=== PATIENT | female | born 1995 | race Caucasian/White ===

== ENCOUNTER → 2016-12-22 | Outpatient (CLI) | payer MEDICAID, OTHER | LOC: MW.CHOBGYN 10:47 | PROVIDERS: ATTEND Advanced Practice Midwife | DX: Z34.90 Encounter for supervision of normal pregnancy, unspecified, unspecified trimester (principal) | CPT/HCPCS: 36415; 80305; 81003; 85025; 86592; 86762; 86803; 86850; 86900; 86901; 87086; 87340; 87389; 87491; 87591 ==

== ENCOUNTER 2017-03-12 15:36 | Emergency (ER) | payer SELFPAY ==
[2017-03-12] MEDS ORDERED: Sodium Chloride 0.9% 1,000 ML IV ONE (15:39)
[2017-03-12 16:29] LABS: CHLORIDE,CL 105 mmol/L (98-110); SODIUM,NA 136 mmol/L (136-146)
--- NOTE | 2017-03-12 16:53 | EDM.PDOC ---
ED HPI GENERAL MEDICAL PROBLEM - General Chief Complaint: Gastrointestinal Problem Stated Complaint: VOMITTING BLOOD(34WKS ) Time Seen by Provider: 03/12/17 15:40 Source of Information: Reports: Patient History Limitations: Reports: No Limitations - History of Present Illness INITIAL COMMENTS - FREE TEXT/NARRATIVE: History of present illness: [21-year-old female comes in with complaints of bloody emesis 1 this morning upon waking. Patient indicates she has some pinching and cramping in her abdomen as well and is at 34 weeks of gestation.] Review of systems: As per history of present illness and below otherwise all systems reviewed and negative. Past medical history: As per history of present illness and as reviewed below otherwise noncontributory. Surgical history: As per history of present illness and as reviewed below otherwise noncontributory. Social history: No reported history of drug or alcohol abuse. Family history: As per history of present illness and as reviewed below otherwise noncontributory. Physical exam: HEENT: Atraumatic, normocephalic, pupils reactive, negative for conjunctival pallor or scleral icterus, mucous membranes moist, throat clear, neck supple, nontender, trachea midline. Lungs: Clear to auscultation, breath sounds equal bilaterally, chest nontender. Heart: S1S2, regular, negative for clicks, rubs, or JVD. Abdomen: Soft, nondistended, nontender. Negative for masses or hepatosplenomegaly. Negative for costovertebral tenderness. Pelvis: Stable nontender. Genitourinary: Deferred. Rectal: Deferred. Extremities: Atraumatic, negative for cords or calf pain. Neurovascular unremarkable. Neuro: Awake, alert, oriented. Cranial nerves II through XII unremarkable. Cerebellum unremarkable. Motor and sensory unremarkable throughout. Exam nonfocal. OB nurse was here and did a nonstress test and monitored mom and baby with full clearance given. No nausea vomiting and/or amount of emesis while present in the ED Labs are completely stable without concern at this point Sushila Johnson CNM notified of patient's status and indicated a PPI and follow -up in office would be acceptable. Diagnostics: [CBC, CMP] Therapeutics: [IV fluid] Impression: [Vomiting, third trimester stable] Plan: [PPI, follow-up with OB] Definitive disposition and diagnosis as appropriate pending reevaluation and review of above. Lower Abdominal Pain Score (Numeric/FACES): 7 - Related Data Allergies Allergy/AdvReac Type Severity Reaction Status Date / Time Penicillins Allergy Hives Verified 03/12/17 15:49 Home Meds: Home Meds Lansoprazole [Prevacid] 30 mg PO DAILY #30 capsule. 03/12/17 [Rx] Past Medical History - Past Health History Medical/Surgical History: Denies Medical/Surgical History PRACTICE PROFESSIONAL History: Reports: - Infectious Disease History Infectious Disease History: Reports: Chicken Pox Social & Family History - Family History Family Medical History: Noncontributory - Tobacco Use Smoking Status *Q: Never Smoker - Caffeine Use Caffeine Use: Reports: None - Recreational Drug Use Recreational Drug Use: No ED ROS GENERAL - Review of Systems Review Of Systems: See Below (See history of present illness) ED EXAM, GENERAL - Physical Exam Exam: See Below (See history of present illness) Course - Vital Signs Last Recorded V/S: Last Vital Signs Temp 36.4 C 03/12/17 15:43 Pulse 89 03/12/17 15:43 Resp 16 03/12/17 15:43 BP 132/75 03/12/17 15:43 Pulse Ox 99 03/12/17 15:43 - Orders/Labs/Meds Labs: Laboratory Tests 03/12/17 03/12/17 Range/Units 15:49 15:49 WBC 14.23 H (4.0-11.0) K/uL RBC 4.30 (4.30-5.90) M/uL Hgb 11.8 L (12.0-16.0) g/dL Hct 36.9 (36.0-46.0) % MCV 85.8 (80.0-98.0) fL MCH 27.4 (27.0-32.0) pg MCHC 32.0 (31.0-37.0) g/dL RDW Std Deviation 41.2 (28.0-62.0) fl RDW Coeff of Nieves 13 (11.0-15.0) % Plt Count 188 (150-400) K/uL MPV 11.00 (7.40-12.00) fL Neut % (Auto) 79.5 (48.0-80.0) % Lymph % (Auto) 14.9 L (16.0-40.0) % Dawes % (Auto) 5.1 (0.0-15.0) % Eos % (Auto) 0.4 (0.0-7.0) % Baso % (Auto) 0.1 (0.0-1.5) % Neut # (Auto) 11.3 H (1.4-5.7) K/uL Lymph # (Auto) 2.1 (0.6-2.4) K/uL Dawes # (Auto) 0.7 (0.0-0.8) K/uL Eos # (Auto) 0.1 (0.0-0.7) K/uL Baso # (Auto) 0.0 (0.0-0.1) K/uL Nucleated RBC % 0.0 /100WBC Nucleated RBCs # 0 K/uL Sodium 136 (136-146) mmol/L Potassium 3.8 (3.5-5.1) mmol/L Chloride 105 (98-110) mmol/L Carbon Dioxide 21 (21-31) mmol/L BUN 10 (6.0-23.0) mg/dL Creatinine 0.7 (0.6-1.5) mg/dL Est Cr Clr Drug Dosing 100.55 mL/min Estimated GFR (MDRD) > 60.0 ml/min Glucose 74 (60-110) mg/dL Calcium 9.0 (8.8-10.8) mg/dL Total Bilirubin 0.5 (0.1-1.5) mg/dL AST 21 (5-40) IU/L ALT 15 (8-54) IU/L Alkaline Phosphatase 135 (40-150) Total Protein 7.6 (6.0-8.0) g/dL Albumin 3.5 (3.5-5.0) g/dL Globulin 4.1 H (2.0-3.5) g/dL Albumin/Globulin Ratio 0.9 L (1.3-2.8) Meds: Medications Discontinued Medications Generic Name Dose Route Start Last Admin Trade Name Freq PRN Reason Stop Dose Admin Sodium Chloride 1,000 mls @ 999 mls/hr 03/12/17 15:39 03/12/17 15:53 Normal Saline IV 03/12/17 16:39 999 mls/hr STAT ONE Administration Departure - Departure Time of Disposition: 16:53 Disposition: Home, Self-Care 01 Condition: Good Clinical Impression: Vomiting, 34 weeks gestation of - Discharge Information Prescriptions: Lansoprazole [Prevacid] 30 mg PO DAILY #30 capsule.dr Forms: ED Department Discharge Additional Instructions: The following information is given to patients seen in the emergency department who are being discharged to home. This information is to outline your options for follow-up care. We provide all patients seen in our emergency department with a follow-up referral. The need for follow-up, as well as the timing and circumstances, are variable depending upon the specifics of your emergency department visit. If you don't have a primary care physician on staff, we will provide you with a referral. We always advise you to contact your personal physician following an emergency department visit to inform them of the circumstance of the visit and for follow-up with them and/or the need for any referrals to a consulting specialist. The emergency department will also refer you to a specialist when appropriate. This referral assures that you have the opportunity for follow-up care with a specialist. All of these measure are taken in an effort to provide you with optimal care, which includes your follow-up. Under all circumstances we always encourage you to contact your private physician who remains a resource for coordinating your care. When calling for follow-up care, please make the office aware that this follow-up is from your recent emergency room visit. If for any reason you are refused follow-up, please contact the [facility] Emergency Department at and asked to speak to the emergency department charge nurse. Take medication as directed Follow-up with PCP 1-2 days Return to ED as needed as discussed
[2017-03-12 17:09] VITALS: BP 101/58
== END 2017-03-12 17:05 | disposition home or self-care (01) ==
LOC: MW.ED 15:36
DX: O21.9 Vomiting of pregnancy, unspecified (principal); Z3A.34 34 weeks gestation of pregnancy; Z88.0 Allergy status to penicillin; Z79.899 Other long term (current) drug therapy
CPT/HCPCS: 36415; 80053; 85025; 96360; 99284; J7040; 99283

== ENCOUNTER 2017-04-18 00:06 | Inpatient (IN) | payer SELFPAY ==
[2017-04-18] MEDS ORDERED: Sodium Chloride 0.9% 10 ML Syringe FLUSH PRN (03:01)
[2017-04-18] MEDS ORDERED: Carboprost Tromethamine 250 MCG/1 ML Amp IM PRN (03:01)
[2017-04-18] MEDS ORDERED: Nalbuphine 10 MG/1 ML Vial IVPUSH PRN (03:01)
[2017-04-18] MEDS ORDERED: Misoprostol 200 MCG Tab PO PRN (03:01)
[2017-04-18] MEDS ORDERED: Butorphanol 1 MG/ML SDV IVPUSH PRN (03:01)
[2017-04-18] MEDS ORDERED: Lidocaine 1% 50 ML MDV INJECT PRN (03:01)
[2017-04-18] MEDS ORDERED: Sodium Chloride 0.9% 2.5 ML Syringe FLUSH PRN (03:01)
[2017-04-18] MEDS ORDERED: Methylergonovine 0.2 MG/1 ML Amp IM PRN ×2 (03:01→12:18)
[2017-04-18] MEDS ORDERED: Water For Irrigation,Sterile 1,000 ML Container IRR PRN (03:01)
[2017-04-18] MEDS ORDERED: cefTRIAXone 1 GM in Premix Bag 1 BAG IV ONE (03:40)
[2017-04-18] MEDS: Lactated Ringers 1,000 ML IV SCH ×2 (03:45→07:28)
[2017-04-18] MEDS ORDERED: Oxytocin/Lactated Ringers 30 UNIT/500 ML BAG IV ONE (05:00)
[2017-04-18] MEDS ORDERED: Oxytocin/Lactated Ringers 30 UNIT/500 ML BAG ONE (11:22)
[2017-04-18] MEDS ORDERED: fentaNYL 100 MCG/2 ML SDV ONE (11:30)
[2017-04-18] MEDS ORDERED: Lanolin 100% Cream 7 GM Tube TOP PRN (12:18)
[2017-04-18] MEDS ORDERED: Benzocaine/Menthol 20%-0.5% Spray 78 GM Cannister TOP PRN (12:18)
[2017-04-18] MEDS ORDERED: Docusate Sodium 100 MG Cap PO PRN (12:18)
[2017-04-18] MEDS ORDERED: Acetaminophen 500 MG Tab PO PRN (12:18)
[2017-04-18] MEDS ORDERED: Bisacodyl 10 MG Supp RECTAL PRN (12:18)
[2017-04-18] MEDS ORDERED: Witch Hazel Medicated Pads 40/Jar TOP PRN (12:18)
[2017-04-18] MEDS ORDERED: oxyCODONE 5 MG Tab PO PRN (12:18)
[2017-04-18] MEDS: Ibuprofen 800 MG Tab PO PRN ×2 (14:03→20:02)
--- NOTE | 2017-04-18 14:47 | OR ---
SURGEON: Dixie Alexandre M.D. DATE OF PROCEDURE: 04/18/2017 PREOPERATIVE DIAGNOSIS: A 40-week intrauterine , active spontaneous labor. POSTOPERATIVE DIAGNOSIS: A 40-week intrauterine , active spontaneous labor. PROCEDURES: 1. Term spontaneous vaginal delivery. 2. Repair of first-degree perineal laceration. ANESTHESIA: Local. ESTIMATED BLOOD LOSS: Less than 300 mL. FINDINGS: Live born male, score 8 and 10 weighing 3260 g. Placenta spontaneous, Webber intact with 3 vessels. First degree perineal laceration repair. COMPLICATIONS: None known. DISPOSITION: Mother and baby are in LDRP in good condition. BRIEF HISTORY: This is a 21-year-old female, G2, P 1-0-0-1. She presents at 40 weeks gestation in active spontaneous labor. She was admitted to Labor and Delivery. She was known to be group B strep positive with a penicillin allergy. Sensitivities showed the bacteria to be sensitive to Rocephin which she received without any complications. After 5 hours of Rocephin, she was still 5-6 cm dilated, therefore artificial rupture of membranes was performed. Clear fluid was noted. She continued to have category 1 heart tones. She progressed to 8-9 cm. At this time she decided that she may want epidural analgesia, therefore anesthesia was notified. They came and attempted to do an intrathecal. However the head was at this time. DESCRIPTION OF PROCEDURE: With the patient in the dorsal lithotomy position, the patient pushed over 2 contractions to a 5+ station, at which time the head was delivered spontaneously and atraumatically over the perineum with support with subsequent delivery of the infant's shoulders and body without any difficulty. The infant was bulb suctioned by nose and mouth. The cord was clamped x2 and cut. The infant was handed to the mother in the presence of the nurse attending delivery. The was a liveborn male, score 8 and 10, weighing 3260 g. Cord blood was collected for cord ABGs as well as routine cord blood sampling. The placenta was delivered spontaneously, Webber intact with 3 vessels. Upon inspection of the pelvis and perineum, there were no periurethral, vaginal sidewall, cervical, or rectal lacerations. There was a first-degree perineal laceration that was repaired with a subcuticular suture of 3-0 Caprosyn. Final sponge, needle, and instrument count were correct. There were no known complications. Infant and mother remained in LDRP in good condition. GEORGES HINKLE /[id number]
--- NOTE | 2017-04-18 17:26 | PCM48HPAN ---
Post Anesthesia Note - EVALUATION WITHIN 48HRS OF ANESTHETIC Vital Signs in Normal Range: Yes Patient Participated in Evaluation: Yes Respiratory Function Stable: Yes Airway Patent: Yes Cardiovascular Function Stable: Yes Hydration Status Stable: Yes Pain Control Satisfactory: Yes Nausea and Vomiting Control Satisfactory: Yes Mental Status Recovered: Yes
[2017-04-19 08:25] VITALS: BP 130/77
--- NOTE | 2017-04-19 09:53 | PCM.PNPP ---
- General Info Date of Service: 04/19/17 Functional Status: Reports: Pain Controlled, Tolerating Diet, Ambulating, Urinating - Review of Systems General: Reports: No Symptoms HEENT: Reports: No Symptoms Pulmonary: Reports: No Symptoms Cardiovascular: Reports: No Symptoms Gastrointestinal: Reports: No Symptoms Genitourinary: Reports: No Symptoms Musculoskeletal: Reports: No Symptoms Skin: Reports: No Symptoms Neurological: Reports: No Symptoms Psychiatric: Reports: No Symptoms - Patient Data Vital Signs - Most Recent: Last Vital Signs Temp 37.0 C 04/19/17 08:24 Pulse 80 04/19/17 08:24 Resp 15 04/19/17 08:24 BP 130/77 04/19/17 08:24 Pulse Ox 100 04/19/17 08:24 Weight - Most Recent: 74.843 kg Lab Results - Last 24 Hours: Laboratory Results - last 24 hr 04/19/17 Range/Units 05:35 Hgb 7.4 L (12.0-16.0) g/dL Hct 23.5 L (36.0-46.0) % Med Orders - Current: Current Medications Acetaminophen (Tylenol Extra Strength) 1,000 mg PO Q4H PRN PRN Reason: Pain Benzocaine/Menthol (Dermoplast Pain Relief 20%-0.5% Gilbert) 78 gm TOP ASDIRECTED PRN PRN Reason: Perineal Comfort Measure Last Admin: 04/18/17 13:59 Dose: 1 canister Bisacodyl (Dulcolax) 10 mg RECTAL .ONCE PRN PRN Reason: Constipation Docusate Sodium (Colace) 100 mg PO BID PRN PRN Reason: Constipation Emollient Ointment (Lansinoh Hpa) 0 gm TOP ASDIRECTED PRN PRN Reason: Sore Nipples Ibuprofen (Motrin) 800 mg PO Q6H PRN PRN Reason: Pain Last Admin: 04/18/17 20:02 Dose: 800 mg Methylergonovine Maleate (Methergine) 0.2 mg IM .ONCE PRN PRN Reason: Excessive Vaginal Bleeding Oxycodone HCl (Oxycodone) 5 mg PO Q2H PRN PRN Reason: Pain Witch Mar (Tucks) 1 pad TOP ASDIRECTED PRN PRN Reason: comfort care Last Admin: 04/18/17 13:59 Dose: 1 tub Discontinued Medications Butorphanol Tartrate (Stadol) 1 mg IVPUSH Q1H PRN PRN Reason: Pain Carboprost Tromethamine (Hemabate Ds) 250 mcg IM ASDIRECTED PRN PRN Reason: Post Hemorrhage Fentanyl (Sublimaze) Confirm Administered Dose 100 mcg .ROUTE .Sentrinsic-Urtak ONE Stop: 04/18/17 11:31 Last Admin: 04/18/17 21:36 Dose: Not Given Lactated Ringer's (Ringers, Lactated) 1,000 mls @ 150 mls/hr IV ASDIRECTED SUSIE Last Admin: 04/18/17 07:28 Dose: 150 mls/hr Oxytocin/Lactated Ringer's (Pitocin In Lr 30 Units/500 Ml) 30 unit in 500 mls @ 500 mls/hr IV ONETIME ONE Stop: 04/18/17 05:59 Last Admin: 04/18/17 11:55 Dose: 500 mls/hr Ceftriaxone Sodium/Dextrose 1 (gm/ Premix) 50 mls @ 100 mls/hr IV ONETIME ONE Stop: 04/18/17 04:09 Last Admin: 04/18/17 04:05 Dose: 100 mls/hr Oxytocin/Lactated Ringer's (Pitocin In Lr 30 Units/500 Ml) Confirm Administered Dose 30 unit in 500 mls @ as directed .ROUTE .Sentrinsic-Urtak ONE Stop: 04/18/17 11:23 Last Admin: 04/18/17 21:36 Dose: Not Given Lidocaine HCl (Xylocaine 1%) 50 ml INJECT .ONCE PRN PRN Reason: Laceration repair Last Admin: 04/18/17 11:40 Dose: 50 ml Methylergonovine Maleate (Methergine) 0.2 mg IM ASDIRECTED PRN PRN Reason: Post Hemorrhage Misoprostol (Cytotec) 200 mcg PO .ONCE PRN PRN Reason: Post Hemorrhage Nalbuphine HCl (Nubain) 10 mg IVPUSH Q1H PRN PRN Reason: Pain (severe 7-10) Sodium Chloride (Saline Flush) 10 ml FLUSH ASDIRECTED PRN PRN Reason: Keep Vein Open Sodium Chloride (Saline Flush) 2.5 ml FLUSH ASDIRECTED PRN PRN Reason: Keep Vein Open Sterile Water (Sterile Water For Irrigation) 1,000 ml IRR ASDIRECTED PRN PRN Reason: delivery Last Admin: 04/18/17 11:33 Dose: 1,000 ml - Interaction Infant Disposition, : at Bedside Infant Interaction: Holding Infant Feeding: Breastfed Infant; Nursed Well Support Person: - Recovery Exam Fundal Tone: Firm Fundal Level: At Umbilicus Fundal Placement: Midline Lochia Amount: Scant Lochia Color: Rubra/Red Perineum Description: Intact, Minimal Bruising/Swelling Other Perinuem Description: 1st degree laceration Episiotomy/Laceration: Approximated Bladder Status: Nonpalpable, Voiding Urinary Elimination: Voided - Exam General: Alert, Oriented HEENT: Pupils Equal Neck: Supple Lungs: Normal Respiratory Effort GI/Abdominal Exam: Soft, Non-Tender, No Mass Extremities: Normal Inspection, Normal Range of Motion, Non-Tender, No Pedal Edema, Normal Capillary Refill Skin: Warm, Dry, Intact Neurological: No New Focal Deficit Psy/Mental Status: Alert, Normal Affect, Normal Mood - Problem List & Annotations (1) Vaginal delivery SNOMED Code(s): 987096243 Code(s): O80 - ENCOUNTER FOR FULL-TERM UNCOMPLICATED DELIVERY Status: Acute Current Visit: Yes - Problem List Review Problem List Initiated/Reviewed/Updated: Yes - My Orders Last 24 Hours: My Active Orders 04/18/17 12:18 Patient Status [ADT] Routine May Shower [RC] ASDIRECTED Up ad Sally [RC] ASDIRECTED Vital Signs [RC] PER UNIT ROUTINE Acetaminophen [Tylenol Extra Strength] 1,000 mg PO Q4H PRN Benzocaine/Menthol [Dermoplast Pain Relief 20%-0.5% Gilbert] 78 gm TOP ASDIRECTED PRN Bisacodyl [Dulcolax] 10 mg RECTAL .ONCE PRN Docusate Sodium [Colace] 100 mg PO BID PRN Ibuprofen [Motrin] 800 mg PO Q6H PRN Lanolin [Lansinoh HPA] See Dose Instructions TOP ASDIRECTED PRN Methylergonovine [Methergine] 0.2 mg IM .ONCE PRN Witch Mar [Tucks] 1 pad TOP ASDIRECTED PRN oxyCODONE 5 mg PO Q2H PRN Assess Lochia [WOMSER] Per Unit Routine Assess Uterine Involution [WOMSER] Per Unit Routine Peripheral IV Discontinue [OM.PC] Routine Resuscitation Status Routine 04/18/17 12:19 Perineal Care [OM.PC] Per Unit Routine 04/18/17 Lunch Regular Diet [DIET] - Assessment Assessment:: PPD#1 after , stable, minimal lochia, would like to go home after 24 hour . She is well, good support from FOB - Plan Plan:: Dismiss to home. Discharge precautions reviewed. Will use over the counter pain medication, continue vitamins while .
--- NOTE | 2017-04-19 09:56 | PCM.DCSUM1 ---
Discharge Summary - Hospital Course Free Text/Narrative:: 21 year old at 40 weeks gestation, GBS positive given Rocephin due to allergy/sensitivities, afebrile in labor had of liveborn male APG 8/10 weight 3260 grams, second degree laceration repaired. Uneventful course, bonding well, good support from SO, well. - Discharge Data Discharge Date: 04/19/17 Discharge Disposition: Home, Self-Care 01 Condition: Good - Discharge Diagnosis/Problem(s) (1) Vaginal delivery SNOMED Code(s): 530682484 ICD Code: O80 - ENCOUNTER FOR FULL-TERM UNCOMPLICATED DELIVERY Status: Acute Current Visit: Yes - Patient Summary/Data Operative Procedure(s) Performed: TSVD, repair of second degree laceration Complications: None Known. - Patient Instructions Diet: Usual Diet as Tolerated Activity: No Strenuous Activities Driving: May Drive Today Showering/Bathing: May Shower Notify Provider of: Fever, Increased Pain, Swelling and Redness, Nausea and/or Vomiting Other/Special Instructions: nothing per vagina for 6 weeks. Continue vitamins while . May use over the counter Ibuprofen or Tylenol for pain. - Discharge Plan Home Medications: Home Meds Lansoprazole [Prevacid] 30 mg PO DAILY #30 capsule. 03/12/17 [Rx] - Discharge Summary/Plan Comment DC Time >30 min.: No - Patient Data Vitals - Most Recent: Last Vital Signs Temp 37.0 C 04/19/17 08:24 Pulse 80 04/19/17 08:24 Resp 15 04/19/17 08:24 BP 130/77 04/19/17 08:24 Pulse Ox 100 04/19/17 08:24 Weight - Most Recent: 74.843 kg Lab Results - Last 24 hrs: Laboratory Results - last 24 hr 04/19/17 Range/Units 05:35 Hgb 7.4 L (12.0-16.0) g/dL Hct 23.5 L (36.0-46.0) % Med Orders - Current: Current Medications Acetaminophen (Tylenol Extra Strength) 1,000 mg PO Q4H PRN PRN Reason: Pain Benzocaine/Menthol (Dermoplast Pain Relief 20%-0.5% Ingraham) 78 gm TOP ASDIRECTED PRN PRN Reason: Perineal Comfort Measure Last Admin: 04/18/17 13:59 Dose: 1 canister Bisacodyl (Dulcolax) 10 mg RECTAL .ONCE PRN PRN Reason: Constipation Docusate Sodium (Colace) 100 mg PO BID PRN PRN Reason: Constipation Emollient Ointment (Lansinoh Hpa) 0 gm TOP ASDIRECTED PRN PRN Reason: Sore Nipples Ibuprofen (Motrin) 800 mg PO Q6H PRN PRN Reason: Pain Last Admin: 04/18/17 20:02 Dose: 800 mg Methylergonovine Maleate (Methergine) 0.2 mg IM .ONCE PRN PRN Reason: Excessive Vaginal Bleeding Oxycodone HCl (Oxycodone) 5 mg PO Q2H PRN PRN Reason: Pain Witch Mar (Tucks) 1 pad TOP ASDIRECTED PRN PRN Reason: comfort care Last Admin: 04/18/17 13:59 Dose: 1 tub Discontinued Medications Butorphanol Tartrate (Stadol) 1 mg IVPUSH Q1H PRN PRN Reason: Pain Carboprost Tromethamine (Hemabate Ds) 250 mcg IM ASDIRECTED PRN PRN Reason: Post Hemorrhage Fentanyl (Sublimaze) Confirm Administered Dose 100 mcg .ROUTE .STK-MED ONE Stop: 04/18/17 11:31 Last Admin: 04/18/17 21:36 Dose: Not Given Lactated Ringer's (Ringers, Lactated) 1,000 mls @ 150 mls/hr IV ASDIRECTED SUSIE Last Admin: 04/18/17 07:28 Dose: 150 mls/hr Oxytocin/Lactated Ringer's (Pitocin In Lr 30 Units/500 Ml) 30 unit in 500 mls @ 500 mls/hr IV ONETIME ONE Stop: 04/18/17 05:59 Last Admin: 04/18/17 11:55 Dose: 500 mls/hr Ceftriaxone Sodium/Dextrose 1 (gm/ Premix) 50 mls @ 100 mls/hr IV ONETIME ONE Stop: 04/18/17 04:09 Last Admin: 04/18/17 04:05 Dose: 100 mls/hr Oxytocin/Lactated Ringer's (Pitocin In Lr 30 Units/500 Ml) Confirm Administered Dose 30 unit in 500 mls @ as directed .ROUTE .STK-MED ONE Stop: 04/18/17 11:23 Last Admin: 04/18/17 21:36 Dose: Not Given Lidocaine HCl (Xylocaine 1%) 50 ml INJECT .ONCE PRN PRN Reason: Laceration repair Last Admin: 04/18/17 11:40 Dose: 50 ml Methylergonovine Maleate (Methergine) 0.2 mg IM ASDIRECTED PRN PRN Reason: Post Hemorrhage Misoprostol (Cytotec) 200 mcg PO .ONCE PRN PRN Reason: Post Hemorrhage Nalbuphine HCl (Nubain) 10 mg IVPUSH Q1H PRN PRN Reason: Pain (severe 7-10) Sodium Chloride (Saline Flush) 10 ml FLUSH ASDIRECTED PRN PRN Reason: Keep Vein Open Sodium Chloride (Saline Flush) 2.5 ml FLUSH ASDIRECTED PRN PRN Reason: Keep Vein Open Sterile Water (Sterile Water For Irrigation) 1,000 ml IRR ASDIRECTED PRN PRN Reason: delivery Last Admin: 04/18/17 11:33 Dose: 1,000 ml *Q Meaningful Use (DIS) - VTE *Q VTE Criteria *Q: - Stroke *Q Stroke Criteria *Q: - AMI *Q AMI Criteria *Q:
== END 2017-04-19 14:10 | disposition home or self-care (01) | DRG 775 ==
LOC: MW.OBCHECK 00:06 → MW.OB 00:06 → MW.OBCHECK 03:02 → MW.OB 03:02 → OBSVTOIN 11:33
PROVIDERS: ADMIT Obstetrics & Gynecology; ATTEND Obstetrics & Gynecology
PROC: 10E0XZZ Delivery of Products of Conception, External Approach (ICD-10-PCS; principal; 2017-04-18)
PROC: 0HQ9XZZ Repair Perineum Skin, External Approach (ICD-10-PCS; 2017-04-18)
DX: O70.0 First degree perineal laceration during delivery (principal); O99.824 Streptococcus B carrier state complicating childbirth; Z3A.40 40 weeks gestation of pregnancy; Z37.0 Single live birth; Z88.0 Allergy status to penicillin
CPT/HCPCS: 36415; 59025; 85014; 85018; 85027; 86850; 86900; 86901; A9270-GY; J0696; J7120